=== PATIENT | female | born 1950 | race Caucasian/White ===

== ENCOUNTER → 2016-11-30 | Outpatient (CLI) | payer MEDICARE | END | disposition home or self-care (01) | LOC: PCVCCLINIC 13:10 | PROVIDERS: ATTEND Internal Medicine Cardiovascular Disease | DX: I49.3 Ventricular premature depolarization (principal); T73.2XXA Exhaustion due to exposure, initial encounter; Z82.49 Family history of ischemic heart disease and other diseases of the circulatory system; Z79.899 Other long term (current) drug therapy | CPT/HCPCS: 80061; G0463 ==

== ENCOUNTER → 2017-01-02 | Outpatient (CLI) | payer MEDICARE ==
--- NOTE | 2017-01-02 13:32 | PCVCIMAG ---
APPROVED REPORT Exam: Stress Echocardiogram Indication: PVC'S Patient Location: Echo lab Stress Nurse: Morenita Khan RN Status: routine Ht: 5 ft 8 in HR: 86 bpm BP: 130/80 mmHg Rhythm: NSR, PVC's Procedure The patient underwent an Exercise Stress Test using the Bret Protocol. Blood pressure, heart rate, and EKG were monitored. An Echocardiogram was performed by quality technician in four stages in quad fashion. At peak stress, four selected images were obtained and placed side by side with resting images for comparison. Stress Test Details Stress Test: Exercise stress testing was performed using a Bret protocol. HR Resting HR: 86 bpmMax Heart Rate (APMHR): 153 bpm Max HR Achieved: 164 bpmTarget HR (85% APMHR): 130 bpm % of APMHR: 107 HR response to stress: Normal HR response to stress BP Resting BP: 130/80 mmHg Max BP: 188/80 mmHg ECG Resting ECG: Sinus Rhythm, PVC'S Stress ECG: Sinus Rhythm Arrhythmia: Frequent PVC's, Occasional couplets Recovery ECG: PVCs Recovery Arrhythmia: PVC's Clinical Reason for Termination: Maximal effort Exercise duration: 6 min sec Highest Stage Achieved: Stage 2: 2.5 mph at 12% grade. Exercise capacity: 7.00 METs Overall Exercise Capacity for Age: Poor Stress ECG Conclusion Frequent PVC's. Occasional couplets. Pre-Stress Echo The resting Echocardiogram showed normal left ventricular contractility with an estimated Ejection Fraction of about 55-60%. Normal wall motion in all segments on baseline images. Post-Stress Echo The stress Echocardiogram showed normal left ventricular contractility with an estimated Ejection Fraction of about 60-65%. Normal augmentation of wall motion in all segments on post stress images. Conclusion Clinical Response: Non-ischemic Exercise Capacity: Below Average Stress ECG Response: Non-ischemic Stress Echo Images: Non-ischemic
== END | disposition home or self-care (01) ==
LOC: PCVCIMAG 11:19
PROVIDERS: ATTEND Internal Medicine Cardiovascular Disease
DX: I49.3 Ventricular premature depolarization (principal); R94.31 Abnormal electrocardiogram [ECG] [EKG]; Z82.49 Family history of ischemic heart disease and other diseases of the circulatory system
CPT/HCPCS: 93325; 93351

== ENCOUNTER → 2018-01-02 | Outpatient (CLI) | payer MEDICARE | END | disposition home or self-care (01) | LOC: PCVCCLINIC 12:49 | PROVIDERS: ATTEND Internal Medicine Cardiovascular Disease | DX: I49.3 Ventricular premature depolarization (principal); E78.5 Hyperlipidemia, unspecified; Z82.49 Family history of ischemic heart disease and other diseases of the circulatory system | CPT/HCPCS: 80061; 93005; G0463 ==

== ENCOUNTER → 2019-01-08 | Outpatient (CLI) | payer MEDICARE | END | disposition home or self-care (01) | LOC: PCVCCLINIC 15:28 | PROVIDERS: ATTEND Internal Medicine Cardiovascular Disease | DX: R93.1 Abnormal findings on diagnostic imaging of heart and coronary circulation (principal); E78.5 Hyperlipidemia, unspecified; I49.3 Ventricular premature depolarization; R01.1 Cardiac murmur, unspecified; I10 Essential (primary) hypertension; Z82.49 Family history of ischemic heart disease and other diseases of the circulatory system; Z88.1 Allergy status to other antibiotic agents | CPT/HCPCS: 36415; 80061; 93005; G0463 ==

== ENCOUNTER → 2019-02-27 | Outpatient (CLI) | payer MEDICARE ==
--- NOTE | 2019-02-27 14:40 | PCVCIMAG ---
APPROVED REPORT Study performed: 02/27/2019 11:47:08 Exam: Stress Echocardiogram Indication: CAD , Hypertension Patient Location: Echo lab Stress Nurse: Awilda Whiting RN Room #: 2 Status: routine Ht: 5 ft 8 in HR: 68 bpm BP: 134/84 mmHg Rhythm: NSR Medical History Medical History: CAD non obstructive, HTN Cardiac Risk Factors: HTN, Age, Elevated Cor Ca+ score Previous Cardiac Procedures: none Pretest Chest Pain Characteristics: No chest pain Exercise History: Sedentary Procedure The patient underwent an Exercise Stress Test using the Bret Protocol. Blood pressure, heart rate, and EKG were monitored. An Echocardiogram was performed by brass instrument repair technician in four stages in quad fashion. At peak stress, four selected images were obtained and placed side by side with resting images for comparison. Stress Test Details Stress Test: Exercise stress testing was performed using a Bret protocol. HR Resting HR: 68 bpmMax Heart Rate (APMHR): 151 bpm Max HR Achieved: 155 bpmTarget HR (85% APMHR): 128 bpm % of APMHR: 102 Recovery HR: 84 bpm HR response to stress: Normal HR response to stress BP Resting BP: 134/84 mmHg Max BP: 152/72 mmHg Recovery BP: 128/72 mmHg BP response to stress: Normal blood pressure response to stress. ECG Resting ECG: Sinus Rhythm Stress ECG: Sinus Rhythm ST Change: Non-ischemic Maximum ST Deviation: -0.50 mm Arrhythmia: Rare PAC Recovery ECG: Sinus Rhythm Recovery ST Change: Non-ischemic Recovery ST Deviation: 0.75 mm Recovery Arrhythmia: None Clinical Reason for Termination: Maximal effort Stress Symptoms: dyspnea,fatigue Exercise duration: 9 min 00 sec Highest Stage Achieved: Stage 3: 3.4 mph at 14% grade. Exercise capacity: 10.1 METs Overall Exercise Capacity for Age: Good Scale: Sedentary Angina Score: None No complications. Stress ECG Conclusion Xiao Treadmill Score is 11.5 which is Low risk. Pre-Stress Echo The resting Echocardiogram showed normal left ventricular contractility with an estimated Ejection Fraction of about 55-60%. Normal wall motion in all segments on baseline images. Post-Stress Echo The stress Echocardiogram showed normal left ventricular contractility with an estimated Ejection Fraction of about 65-70%. Normal augmentation of wall motion in all segments on post stress images. Clinical No clinical or ECG evidence for ischemia. Conclusion Clinical Response: Non-ischemic Exercise Capacity: Below Average Stress ECG Response: Non-ischemic Stress Echo Images: Non-ischemic No echocardiographic evidence for exercise induced ischemia. No clinical, EKG or echocardiographic evidence for ischemia. Normal stress echocardiogram with maximal exercise stress. Normal color doppler. No regurgitation or stenosis present on pulmonic, mitral, tricuspid and aortic valves. <Conclusion> No echocardiographic evidence for exercise induced ischemia. No clinical, EKG or echocardiographic evidence for ischemia. Normal stress echocardiogram with maximal exercise stress. Normal color doppler. No regurgitation or stenosis present on pulmonic, mitral, tricuspid and aortic valves.
== END | disposition home or self-care (01) ==
LOC: PCVCIMAG 15:18
PROVIDERS: ATTEND Internal Medicine Cardiovascular Disease
DX: I25.10 Atherosclerotic heart disease of native coronary artery without angina pectoris (principal); I10 Essential (primary) hypertension; E78.5 Hyperlipidemia, unspecified; Z82.49 Family history of ischemic heart disease and other diseases of the circulatory system; Z72.89 Other problems related to lifestyle; Z88.1 Allergy status to other antibiotic agents
CPT/HCPCS: 36415; 80061; 93325; 93351